=== PATIENT | female | born 1960 | race Caucasian/White ===

== ENCOUNTER 2020-08-25 18:41 | Emergency (ER) | payer BC, OTHER ==
[~2020-08-25 18:41] MED LIST: EC-NAPROSYN500 MG PO; HYDROCHLOROTHIA25 MG PO; TOPROL XL50 MG PO; VENTOLIN/PROVE0.5 ML INH; VITAMIN D1000 UNIT PO; ZOCOR40 MG PO
[2020-08-25 19:18] LABS: HEMOGLOBIN 16.5 gm/dl (12.3-15.3); RED BLOOD COUNT 5.38 M/UL (4.00-5.10); WHITE BLOOD COUNT 10.7 K/UL (4.5-11.0)
[2020-08-25 19:54] LABS: BUN/CREATININE RATIO 40 (0-10)
== END 2020-08-25 21:51 | disposition home or self-care (01) ==
LOC: ER1 18:41
DX: R07.89 Other chest pain (principal); I10 Essential (primary) hypertension; J44.9 Chronic obstructive pulmonary disease, unspecified; E11.9 Type 2 diabetes mellitus without complications; F17.210 Nicotine dependence, cigarettes, uncomplicated; Z79.01 Long term (current) use of anticoagulants; Z79.899 Other long term (current) drug therapy; Z20.822 Contact with and (suspected) exposure to COVID-19
CPT/HCPCS: 0240U; 71045; 80053; 82550; 82553; 83690; 83874; 83880; 84484; 85025; 85379; 93005; 99285

== ENCOUNTER → 2020-12-12 | Outpatient (CLI) | payer BC | LOC: KOH-I 15:31 | DX: M47.812 Spondylosis without myelopathy or radiculopathy, cervical region (principal) | CPT/HCPCS: 72040 ==

== ENCOUNTER → 2021-05-12 | Outpatient (CLI) | payer BC | LOC: KOH-I 12:59 | DX: F17.210 Nicotine dependence, cigarettes, uncomplicated (principal); R91.8 Other nonspecific abnormal finding of lung field | CPT/HCPCS: 71271 ==

== ENCOUNTER → 2021-08-09 | Outpatient (CLI) | payer BC | LOC: EMI 10:03 | DX: M47.26 Other spondylosis with radiculopathy, lumbar region (principal); M48.061 Spinal stenosis, lumbar region without neurogenic claudication | CPT/HCPCS: 72148 ==

== ENCOUNTER 2021-09-20 12:43 | Emergency (ER) | payer BC ==
[2021-09-20 13:40] LABS: HEMOGLOBIN 15.7 gm/dl (12.3-15.3); RED BLOOD COUNT 5.25 M/UL (4.00-5.10); WHITE BLOOD COUNT 10.8 K/UL (4.5-11.0)
[2021-09-20 14:09] LABS: BUN/CREATININE RATIO 29 (0-10)
== END 2021-09-20 16:30 | disposition left against medical advice (07) ==
LOC: ER1 12:43
PROVIDERS: Nurse Practitioner
DX: R07.89 Other chest pain (principal); E11.9 Type 2 diabetes mellitus without complications; E78.5 Hyperlipidemia, unspecified; I10 Essential (primary) hypertension; F17.210 Nicotine dependence, cigarettes, uncomplicated
CPT/HCPCS: 71045; 80053; 81001; 82550; 82553; 84484; 85025; 93005; 99283

== ENCOUNTER → 2021-10-11 | Outpatient (CLI) | payer BC | LOC: NM 09:00 | DX: R07.9 Chest pain, unspecified (principal) | CPT/HCPCS: 78452; 93017; A9502; J2785 ==

== ENCOUNTER → 2021-10-11 | Outpatient (CLI) | payer BC | LOC: HEART 5 10-10 09:00 | DX: R07.9 Chest pain, unspecified (principal); R60.9 Edema, unspecified; I05.9 Rheumatic mitral valve disease, unspecified | CPT/HCPCS: 93306 ==